=== PATIENT | male | born 1955 | race Caucasian/White ===

== ENCOUNTER → 2019-09-26 | Outpatient (CLI) | payer MEDICARE ==
[~2019-09-26] MED LIST: ASPIRIN 81M81 MG/TA2 PO; BD POSIFLUSH SF10 ML IV; CEPHALEXIN500 M1 PO; COUMADIN 5MG5 MG/TAB PO; FREESTYLE PREC1 EAC5 MC; GLUCOPHAGE500 MG/TAB PO; GLUCOSE TEST ST1 DEV MC; K-TAB10 PO; LANCETS MC; LASIX 20MG TABL20 MG PO; LOPRESSOR 225 MG/TAB PO; NORCO 325 MG-51 TAB PO; ZESTORETIC 12.51 TAB PO
[2019-09-26 16:44] LABS: INR 1.8 (0.8-3.0); PROTHROMBIN TIME 21.2 SECONDS (9.7-12.8)
== END ==
LOC: COL.LAB 15:21
PROVIDERS: Family Medicine
DX: L03.115 Cellulitis of right lower limb (principal); Z79.01 Long term (current) use of anticoagulants

== ENCOUNTER → 2019-09-30 | Outpatient (CLI) | payer MEDICARE | LOC: ZCOL.LAB 13:30 | DX: L03.90 Cellulitis, unspecified (principal); A49.01 Methicillin susceptible Staphylococcus aureus infection, unspecified site ==

== ENCOUNTER → 2019-10-29 | Outpatient (CLI) | payer MEDICARE ==
[2019-10-29 17:13] LABS: INR 2.1 (0.8-3.0); PROTHROMBIN TIME 24.7 SECONDS (9.7-12.8)
== END ==
LOC: ZCOL.LAB 16:40
PROVIDERS: Family Medicine
DX: L03.115 Cellulitis of right lower limb (principal); Z79.01 Long term (current) use of anticoagulants

== ENCOUNTER 2020-01-07 09:33 | Outpatient (RCR) | payer MEDICARE | END 2020-04-06 | disposition home or self-care (01) | LOC: WSPT | DX: I87.2 Venous insufficiency (chronic) (peripheral) (principal); I89.0 Lymphedema, not elsewhere classified; E66.01 Morbid (severe) obesity due to excess calories ==

== ENCOUNTER 2021-03-22 15:55 | Inpatient (IN) | payer MEDICARE ==
[~2021-03-22] VITALS: Ht 177.8 cm; Wt 227.3 kg
[~2021-03-22 15:55] MED LIST changes: +COUMADIN 2MG2 MG/TAB; +DOXYCYCLINE 10100 MG PO; +OMNICEF 300MG300 MG PO; +OXYGEN; +PRINIVIL5 MG PO; +[UNRECOGNIZED DRUG - REMARK] PO
[2021-03-22 17:07] LABS: BASO % 0.4 % (0.0-2.0); EOS # 0.2 (0.0-0.7); EOS % 1.9 % (0-4.0); GRAN # 7.4 (1.4-6.5); GRAN % 73.1 % (42.2-75.2); LYMPH # 1.4 (1.2-3.4); LYMPH % 13.4 % (20.0-51.0); MEAN CELL VOLUME 86 fl (80.0-100.0); MEAN CORPUSCULAR HGB CONC 32 g/dl (33.0-37.0); MEAN PLATELET VOLUME 8.9 fl (7.4-10.4); MONO # 1.1 (0.1-0.6); MONO % 10.7 % (1.7-9.3); PLATELET COUNT 405 K/mm3 (130-400); RED BLOOD COUNT 3.66 M/mm3 (4.20-5.60); REDCELL DISTRIBUTION WIDTH-CV 15.9 % (11.5-14.5)
[2021-03-22 17:08] LABS: HEMATOCRIT 31.3 % (42.0-52.0); HEMOGLOBIN 9.9 g/dl (13.5-18.0); MEAN CORPUSCULAR HEMOGLOBIN 27 pg (27.0-31.0)
[2021-03-22 17:36] LABS: INR 1.9 (0.8-3.0); PROTHROMBIN TIME 21.7 SECONDS (9.7-12.8)
[2021-03-22 17:42] LABS: ALANINE AMINOTRANSFERASE 14 U/L (4-49); ALBUMIN 3.1 gm/dL (3.5-5.0); ALKALINE PHOSPHATASE 70 U/L (50-136); ANION GAP 7 mmol/L (7-16); AST,SGOT 21 U/L (15-37); BILIRUBIN,TOTAL 0.4 mg/dL (0.0-1.0); BLOOD UREA NITROGEN 11 mg/dL (9-20); C-REACTIVE PROTEIN 6.8 mg/dL (0.0-0.9); CALCIUM 8.2 mg/dL (8.4-10.2); CARBON DIOXIDE 24 mmol/L (22-30); CHLORIDE 105 mmol/L (98-107); CREATININE, serum 0.89 (0.66-1.25); GLUCOSE 117 mg/dL (74-106); POTASSIUM 3.7 mmol/L (3.4-5.0); SODIUM 135 mmol/L (137-145)
[2021-03-22 17:52] LABS: TROPONIN-I < 0.012 ng/mL (0.000-0.035)
[2021-03-22 17:55] LABS: COLLECTION METHOD CLEAN CATCH
[2021-03-22 18:31] LABS: MUCOUS Present /lpf; PH 5 (5-8); URINE APPEARANCE Cloudy; URINE BACTERIA Rare /hpf; URINE BILIRUBIN Negative (NEGATIVE); URINE BLOOD 3+ (NEGATIVE); URINE COLOR Amber; URINE GLUCOSE Negative (NEGATIVE); URINE KETONE Negative (NEGATIVE); URINE LEUKOCYTE ESTERASE Trace (NEGATIVE); URINE NITRATE Negative (NEGATIVE); URINE PROTEIN(semi-quant) 1+ (NEGATIVE); URINE RBC >50 /hpf
[2021-03-22 23:00] VITALS: BP 168/65; PULSE 75; TEMP 97.8
[2021-03-22] MEDS ORDERED: ALEVE 220MG220 MG PO (23:21)
--- NOTE | 2021-03-22 23:51 | NUR ---
PT ADMITTED TO THE UNIT. ADMISSION INTAKE AND ASSESSMENT COMPLETED. PT RESTING IN BED, ORIENTED TO ROOM. PT GIVEN A BEDBATH, MULTIPLE AREAS OF REDDENED, RAW SKIN NOTED BETWEEN SKIN FOLDS AND IN PERINEAL AREA. PT BOTTOM WAS ALSO REDDENED AND APPEARED TO HAVE SOME OPEN BLEEDING AREAS. PTS BLE ARE SWOLLEN AND HAVE BLISTERS, CRUSTING, AND RAW OPEN SORES. THE BLE ALSO HAVE A MEDIUM AMOUNT OF DRAINGE, THEY ARE OPEN TO AIR AT THIS TIME. PT ON 2L OF O2 VIA NC. PT STATES THE ONLY PAIN IS TO HIS L ANKLE WHICH IS PRETTY RAW. PT DENIES ANY NEEDS AT THIS TIME. WILL CONTINUE TO MONITOR.
--- NOTE | 2021-03-23 01:21 | NUR ---
Vancomycin Initial Dosing Pharmacy Note Ordering provider: Nuzhat Jimenez DO Indication/duration: BLE cellulitis Relevant comorbidities: DM, HTN LABS: WBC = 10.1, SCr = 0.89 Recommendation: Will draw troughs and follow levels. Loading dose: 2 grams Maintenance dose: 1.25 grams every 8 hours Trough goal: 10-15 ug/mL
[2021-03-23 06:50] VITALS: BP 126/58; PULSE 69; TEMP 97.9
--- NOTE | 2021-03-23 07:07 | NUR ---
PT COMPLAINING OF HIS BLADDDER FEELING FULL. ORTIZ CATHETER HAS OUPUT. BLADDER SCANNED WITH 46MLS. PT STATES HE HAS BEEN BEARING DOWN, THIS RN EDUCATED PT THAT URINE SHOULD AUTOMATICALLY FLOW THROUGH ORTIZ AND NOT TO BEAR DOWN. PT SAT ON EDGE OF BED FOR A FEW MINUTES AND FELT SOME RELIEF. WILL CONTINUE TO MONITOR.
--- NOTE | 2021-03-23 09:15 | NUR ---
Initial visit; Patient thanked Surg Physician Asst for looking in on him and offering prayer and God's blessings. Surg Physician Asst will follow up.
--- NOTE | 2021-03-23 09:45 | NUR ---
Shift assessment complete. Pt lying in bed, A&Ox4. Heart rhythm irregular, rate controlled. Lungs CTA. Bilateral shins and feet w/crusty red skin and weeping ulcers, open to air, 3+ edema. Pt reports some tenderness to legs but declines medication at this time. Small open ulcers to bottom, excoriated red lower abdomen. Minaya in place w/small amount of mary urine w/sediment. Pt reports continuous feeling as if he needs to urinate and discomfort due to catheter insertion. Bladder scan shows no urinary retention and catheter site w/o s/s complication. Denies further needs at this time. Continuing to monitor.
--- NOTE | 2021-03-23 10:28 | NUR ---
SW met with the patient to discuss discharge plan. The patient lives in [place] with his girlfriend, Adwoa Castillo (ph#[phone]). He reports independence with ADLs and has a cane and walker. The patient's PCP is Dr. Eduardo Clifford and he receives his medications from [facility]. He reports no difficulties obtaining his meds. The patient does not have a DPOA-HC, but he was interested in obtaining a form. He was not interested in completing one at this time. He states that he is not , does not have any children, and that his parents are . He states that he has two siblings: Alec (ph#[phone]) and Jimena Peralta. SW informed him that his siblings are his next of kin. The patient verbalized understanding. The patient plans to return home with his girlfriend upon discharge. The patient states that he had home health in the past from [facility] and would be interested in starting services back up through them. NICOLE contacted and faxed a referral to Yuliet at [facility]. Awaiting screen. PT/OT have been ordered. SW to continue to follow. *Discharge plan: home with girlfriend and home health*
[2021-03-23 12:46] VITALS: BP 129/57; PULSE 63; TEMP 98.5
--- NOTE | 2021-03-23 15:00 | NUR ---
Minaya removed per hospitalist orders and external male catheter placed.
[2021-03-23 16:20] VITALS: BP 116/54; PULSE 60; TEMP 98.3
--- NOTE | 2021-03-23 16:31 | NUR ---
Yuliet, at [facility][Note 3], reports that they are able to accept the patient for services.
[2021-03-23 19:55] VITALS: BP 136/68; PULSE 63; TEMP 97.7
--- NOTE | 2021-03-23 21:39 | NUR ---
PT RESTING IN BED AT THIS TIME. EVENING MEDICATIONS GIVEN. PT BLE HAVE BLISTERS, CRUSTING, REDNESS, AND A RAW IN SEVERAL AREAS. PT BOTTOM AND SKIN FOLDS ALSO HAVE RED/RASH APPEARANCE WITH SOME OPEN AREAS. PT REPORTS THERE HAS BEEN LESS DRAINAGE FROM HIS BLE THROUGHOUT THE DAY. PT DENIES ANY NEEDS AT THIS TIME. WILL CONTINUE TO MONITOR.
[2021-03-23 23:58] VITALS: BP 128/62; PULSE 66; TEMP 97.6
[2021-03-24 04:33] VITALS: BP 133/68; PULSE 69; TEMP 97.5
--- NOTE | 2021-03-24 05:33 | NUR ---
PT FINALLY ABLE TO GET SOME SLEEP THIS MORNING. DENIES ANY NEEDS AT THIS TIME. WILL CONTINUE TO MONITOR.
[2021-03-24 07:20] VITALS: BP 127/60; PULSE 58; TEMP 97.9
--- NOTE | 2021-03-24 09:14 | NUR ---
Patient is currently working with OT. Patient stood up at bedside with assistance of OT and this RN. Patient's external catheter came off and incontinence pads were saturated with urine. These were replaced by this RN. All morning scheduled medications administered and shift assessment completed. Patient has had no complaints this morning.
[2021-03-24 11:01] LABS: BASO % 0.4 % (0.0-2.0); EOS # 0.4 (0.0-0.7); EOS % 4.7 % (0-4.0); GRAN # 6.4 (1.4-6.5); GRAN % 71.4 % (42.2-75.2); LYMPH # 1.2 (1.2-3.4); LYMPH % 13.6 % (20.0-51.0); MEAN CELL VOLUME 87 fl (80.0-100.0); MEAN CORPUSCULAR HEMOGLOBIN 27 pg (27.0-31.0); MEAN CORPUSCULAR HGB CONC 31 g/dl (33.0-37.0); MEAN PLATELET VOLUME 8.7 fl (7.4-10.4); MONO # 0.8 (0.1-0.6); MONO % 9.3 % (1.7-9.3); PLATELET COUNT 413 K/mm3 (130-400); RED BLOOD COUNT 3.72 M/mm3 (4.20-5.60); REDCELL DISTRIBUTION WIDTH-CV 16.3 % (11.5-14.5)
[2021-03-24 11:03] LABS: HEMATOCRIT 32.5 % (42.0-52.0)
[2021-03-24 11:12] LABS: CALCIUM 8.1 mg/dL (8.4-10.2); CREATININE, serum 0.95 (0.66-1.25); POTASSIUM 3.4 mmol/L (3.4-5.0)
[2021-03-24 11:58] VITALS: BP 135/62; PULSE 120; TEMP 97.9
--- NOTE | 2021-03-24 13:54 | NUR ---
PT/OT are recommending home health vs SNF. SW met with the patient and discussed their recommendation. The patient states that he prefers to return home and feels comfortable returning home with his girlfriend and having home health services from [facility]. SW to continue to follow. *Discharge plan: home with home health*
[2021-03-24 17:49] VITALS: BP 127/64; PULSE 61; TEMP 98.1
[2021-03-24 20:25] VITALS: BP 127/64; PULSE 64; TEMP 98.3
--- NOTE | 2021-03-24 23:07 | NUR ---
PT RESTING IN BED. EVENING MEDICATIONS GIVEN. PT BLE HAVE PITTING EDEMA, CRUSTING, BLISTERING, RED, AND RAW SKIN. WAS TOLD IN REPORT THAT THEY WERE DEBRIDED DURING THE DAY, THEY DO APPEAR MUCH BETTER. PT ALSO HAS REDNESS TO SKIN FOLDS AND BOTTOM WITH SOME SKIN BREAKDOWN. PT DENIES ANY NEEDS AT THIS TIME. WILL CONTINUE TO MONITOR.
[2021-03-25] VITALS (7 sets, daily range): BP systolic 114–142; BP diastolic 47–67; PULSE 51–70; TEMP 97.5–97.9
--- NOTE | 2021-03-25 04:07 | NUR ---
PT L FOREARM IV INFILTRATED WITH VANCOMYCIN RUNNING. AREA IS RED AND WARM TO THE TOUCH. NEW IV PLACED TO L FOREARM. WILL CONTINUE TO MONITOR.
[2021-03-25 07:49] LABS: INR 3.1 (0.8-3.0)
[2021-03-25 07:53] LABS: BASO % 0.5 % (0.0-2.0); EOS # 0.3 (0.0-0.7); EOS % 4.3 % (0-4.0); GRAN # 5.4 (1.4-6.5); GRAN % 68.1 % (42.2-75.2); LYMPH # 1.3 (1.2-3.4); LYMPH % 16.7 % (20.0-51.0); MEAN CELL VOLUME 87 fl (80.0-100.0); MEAN CORPUSCULAR HGB CONC 31 g/dl (33.0-37.0); MEAN PLATELET VOLUME 8.8 fl (7.4-10.4); MONO # 0.8 (0.1-0.6); MONO % 9.8 % (1.7-9.3); PLATELET COUNT 394 K/mm3 (130-400)
[2021-03-25 07:55] LABS: HEMOGLOBIN 9.4 g/dl (13.5-18.0); MEAN CORPUSCULAR HEMOGLOBIN 27 pg (27.0-31.0)
[2021-03-25 07:56] LABS: HEMATOCRIT 30.6 % (42.0-52.0)
[2021-03-25 07:58] LABS: CALCIUM 7.8 mg/dL (8.4-10.2); CREATININE, serum 1.01 (0.66-1.25); POTASSIUM 3.4 mmol/L (3.4-5.0)
--- NOTE | 2021-03-25 08:23 | NUR ---
Patient laying in bed upon entering the room. IV pump was beeping, zosyn was completed. This RN stopped the pump. Assessment completed.
--- NOTE | 2021-03-25 14:23 | NUR ---
Primary nurse was assisted with [phone] patient care by [employer] student Rachel Aden and [facility] instructor Anne-Marie Shanks MSN, RN
--- NOTE | 2021-03-25 15:10 | NUR ---
PT notified NICOLE that the patient informed her that he is now interested in SNF. SW met with the patient to follow up. The patient states that after working with PT again, he realized he would benefit from SNF. SW informed him of the different post-acute rehabs. He preferred [facility] and was open for SW to send referrals. SW consulted [facility] Director, Pam. NICOLE contacted and faxed a referral to [facility], [facility], [facility], and [facility]. NICOLE staffed with the patient's PA. The patient may be able to d/c tomorrow or Sunday. The patient has Medicare [employer] and his insurance requires auth. NICOLE faxed the patient's information to [facility] for insurance auth. Dhiraj, at [facility], reports that they are unable to accept the patient; due to being bariatric. Pam, [facility] Director, reports that she will not have a bed available over the weekend. Awaiting other screens and insurance approval.
--- NOTE | 2021-03-25 17:42 | NUR ---
Patient has had no complaints today. Has remained in bed but did work with PT/OT. External catheter is still in place and draining well.
--- NOTE | 2021-03-25 22:50 | NUR ---
PT RESTING IN BED. EVENING MEDICATIONS GIVEN. PT BLE APPEAR MUCH MORE DRY AND HAVE MINIMAL DRAINAGE COMPARED TO ADMISSION. PT DENIES ANY NEEDS AT THIS TIME. WILL CONTINUE TO MONITOR.
[2021-03-26 03:29] VITALS: BP 121/61; PULSE 62; TEMP 98.2
[2021-03-26 07:23] LABS: INR 3.7 (0.8-3.0); PROTHROMBIN TIME 41.2 SECONDS (9.7-12.8)
[2021-03-26 07:35] LABS: CREATININE, serum 0.96 (0.66-1.25); POTASSIUM 3.5 mmol/L (3.4-5.0)
[2021-03-26 07:43] LABS: BASO # 0.1 (0.0-0.2); BASO % 0.6 % (0.0-2.0); EOS # 0.2 (0.0-0.7); EOS % 2.4 % (0-4.0); GRAN # 6.2 (1.4-6.5); LYMPH # 1.1 (1.2-3.4); LYMPH % 13.2 % (20.0-51.0); MEAN CELL VOLUME 86 fl (80.0-100.0); MEAN CORPUSCULAR HGB CONC 31 g/dl (33.0-37.0); MEAN PLATELET VOLUME 8.8 fl (7.4-10.4); MONO # 0.9 (0.1-0.6); MONO % 10.2 % (1.7-9.3); PLATELET COUNT 410 K/mm3 (130-400); RED BLOOD COUNT 3.59 M/mm3 (4.20-5.60); REDCELL DISTRIBUTION WIDTH-CV 15.9 % (11.5-14.5)
[2021-03-26 07:46] LABS: HEMATOCRIT 30.7 % (42.0-52.0); HEMOGLOBIN 9.6 g/dl (13.5-18.0); MEAN CORPUSCULAR HEMOGLOBIN 27 pg (27.0-31.0)
[2021-03-26 08:43] VITALS: BP 148/65; PULSE 53; TEMP 98.1
--- NOTE | 2021-03-26 08:50 | NUR ---
Shift assessment complete. Pt resting in bed, A&Ox4. Remains in Afib, rate 50-60s per telemetry. Lungs CTA. 3+ edema, red scaly hardened skin and weeping ulcers to BLE. Denies needs at this time. Continuing to monitor.
[2021-03-26 11:53] VITALS: BP 147/59; PULSE 52; TEMP 98.1
[2021-03-26 16:48] VITALS: BP 136/66; PULSE 59; TEMP 98.2
--- NOTE | 2021-03-26 18:00 | NUR ---
Pt refused getting up to recliner today. Did agree to sit on side of bed to eat dinnner. Remained up for 30 minutes before lying back down.
[2021-03-26 19:22] VITALS: BP 148/66; PULSE 62; TEMP 98.7
--- NOTE | 2021-03-26 21:50 | NUR ---
SCHEDULED MEDICATIONS GIVEN. SHIFT ASSESSMENT PREFORMED. BLE CELLULITIS NOTED. VSS. PATIENT DENIES ANY PAIN, DISCOMFORT, SOA, OR FURTHER NEEDS AT THIS TIME. CALL LIGHT REACH. EXTERNAL CATHETER IN PLACE. SECURMENT DEVICE IN USE.
[2021-03-26 23:16] VITALS: BP 123/50; PULSE 57; TEMP 98.5
[2021-03-27 03:16] VITALS: BP 128/51; PULSE 66; TEMP 98.7
--- NOTE | 2021-03-27 05:20 | NUR ---
PATIENT HAS HAD AN OK NIGHT. VSS. NO SIGNS OF PAIN, DISCOMFORT, SOA, OR FURTHER NEEDS AT THIS TIME. CURRENTLY REQUIRING 1L OF O2 VIA NASAL CANNULA.
[2021-03-27 07:44] VITALS: BP 125/56; PULSE 62; TEMP 97.8
--- NOTE | 2021-03-27 07:45 | NUR ---
Shift assessment complete. Pt lying flat in bed, encouraged to get up to chair today for breakfast, states he will with PT. A&Ox4. Heart rhythm irregular, rate bradycardic in the 50s. Lungs CTA. BLE w/3+ edema, red flaky skin, and weeping leg ulcers. Denies needs this morning. Continuing to monitor.
--- NOTE | 2021-03-27 09:00 | NUR ---
Pt up to recliner w/PT. Sittin in recliner eating breakfast at this time.
[2021-03-27 11:21] VITALS: BP 141/51; PULSE 61; TEMP 98.3
[2021-03-27 14:01] LABS: INR 3.1 (0.8-3.0); PROTHROMBIN TIME 34.9 SECONDS (9.7-12.8)
[2021-03-27 16:00] VITALS: BP 131/61; PULSE 54; TEMP 98.2
[2021-03-27 20:17] VITALS: BP 127/48; PULSE 63; TEMP 98.4
--- NOTE | 2021-03-27 21:23 | NUR ---
Patient assessed around 2019. Alert and oriented x 4, and able to make needs known. Denies having pain and discomfort at this time. Peripheral INTs to left forearm and right AC. Denies SOB and dyspnea. LS CTA in upper lobes, diminished in lower. Respirations even and unlabored. HRI. Telemetry in place: A-fib, rate controlled. Capillary refill less than 3 seconds. Non-tenting skin turgor. BSAx4. Abdomen soft and non-tender. External catheter in place, with mary urine with sediment present. 3+ edema BLE, with redness/scaling/flaking. Weeping ulcers to BLE. Patient voices no questions, needs, or concerns at this time. Resting in bed with call light within reach.
[2021-03-27 23:17] VITALS: BP 96/69; PULSE 64; TEMP 98
[2021-03-28 05:00] VITALS: BP 130/54; PULSE 61; TEMP 97.6
--- NOTE | 2021-03-28 05:55 | NUR ---
Patient has been resting in bed with call light within reach. Has voiced no questions, needs, or concern this shift.
[2021-03-28 07:07] LABS: INR 2.7 (0.8-3.0); PROTHROMBIN TIME 30.2 SECONDS (9.7-12.8)
[2021-03-28 08:13] VITALS: BP 133/52; PULSE 63; TEMP 98
--- NOTE | 2021-03-28 09:41 | NUR ---
The patient's insurance appoved the patient for SNF from days 03/25-03/29. NICOLE contacted [facility] and [facility] to follow up on referral. Both facilities are still looking over the referral. NICOLE met with the patient to update. The patient reports that he really does not want to go too far from [place] and would rather return home with with his girlfriend and home health. He states he will think about it, but home health it was he is leaning towards now. NICOLE to update the clinical team.
--- NOTE | 2021-03-28 10:04 | NUR ---
NICOLE attended clinical rounds. The hospitalist discussed his recommendation for SNF and how we are waiting to hear back from the other facilities. The patient verbalized understanding. NICOLE contacted and gave a referral to Misha at [facility].
[2021-03-28] MEDS ORDERED: CIPRO 500MG TA500 MG PO (10:10)
[2021-03-28] MEDS ORDERED: COUMADIN4 MG PO (10:11)
[2021-03-28] MEDS ORDERED: DOXYCYCLINE 10100 MG PO (10:13)
--- NOTE | 2021-03-28 10:49 | NUR ---
Patient sitting in recliner upon entering the room. C/o generalized pain, patient given PRN tylenol.
--- NOTE | 2021-03-28 11:29 | NUR ---
The hospitalist notified NICOLE that after further discussion with the patient, the patient has decided to pursue going home with home health through [facility]. NICOLE met with the patient and confirmed the plan. NICOLE presented and read the IM form outloud to the patient. The patient verbalized understanding and gave NICOLE approval to sign the form on his behalf. NICOLE provided him with a copy. Danae, at [facility], reports that they declined the patient. The patient is to discharge back home with his fiance today, 03/28, with home health services for group home/PT/OT/wound care from [facility]. NICOLE notified and faxed d/c orders to [facility]. No additional needs at this time.
[2021-03-28 12:21] VITALS: BP 114/51; PULSE 54; TEMP 97.9
--- NOTE | 2021-03-28 15:26 | NUR ---
Patient discharged. This RN and Catina RN, dressed the patient and got him down and into his vehicle.
== END 2021-03-28 15:15 | disposition home health service (06) | DRG 603 ==
LOC: COL.ER 15:55 → MEDICAL 18:46
PROVIDERS: Emergency Medicine; Physician Assistant; ADMIT Internal Medicine
DX: L03.116 Cellulitis of left lower limb (principal); I48.92 Unspecified atrial flutter; R65.10 Systemic inflammatory response syndrome (SIRS) of non-infectious origin without acute organ dysfunction; Z68.45 Body mass index [BMI] 70 or greater, adult; N39.0 Urinary tract infection, site not specified; L97.919 Non-pressure chronic ulcer of unspecified part of right lower leg with unspecified severity; L03.115 Cellulitis of right lower limb; I50.9 Heart failure, unspecified; Z20.822 Contact with and (suspected) exposure to COVID-19; I25.10 Atherosclerotic heart disease of native coronary artery without angina pectoris; I11.0 Hypertensive heart disease with heart failure; E11.9 Type 2 diabetes mellitus without complications; I87.2 Venous insufficiency (chronic) (peripheral); D64.9 Anemia, unspecified; E66.01 Morbid (severe) obesity due to excess calories; R53.81 Other malaise; Z79.891 Long term (current) use of opiate analgesic; I48.91 Unspecified atrial fibrillation; Z79.52 Long term (current) use of systemic steroids; Z79.01 Long term (current) use of anticoagulants; Z90.49 Acquired absence of other specified parts of digestive tract; Z88.6 Allergy status to analgesic agent; Z88.0 Allergy status to penicillin; Z88.2 Allergy status to sulfonamides; Z88.5 Allergy status to narcotic agent; Z91.81 History of falling
CPT/HCPCS: 99223-AI; 99232-AI; 99233-AI; 99239; A4314; J0696; J2543; J3370; J7030; J7040; J7050

== ENCOUNTER 2021-05-06 15:46 | Emergency (ER) | payer MEDICARE ==
[~2021-05-06] VITALS: Ht 177.8 cm; Wt 222.7 kg
[~2021-05-06 15:46] MED LIST changes: +ALEVE 220MG220 MG PO; +CIPRO 500MG TA500 MG PO; +COUMADIN4 MG PO
[2021-05-06 15:49] VITALS: TEMP 97.7
[2021-05-06 16:47] LABS: BASO % 0.4 % (0.0-2.0); EOS # 0.3 K/mm3 (0.0-0.7); EOS % 2.9 % (0-4.0); GRAN # 7.2 K/mm3 (1.4-6.5); GRAN % 77.2 % (42.2-75.2); HEMOGLOBIN 10.2 g/dl (13.5-18.0); LYMPH % 10.6 % (20.0-51.0); MEAN CELL VOLUME 87 fl (80.0-100.0); MEAN CORPUSCULAR HEMOGLOBIN 27 pg (27.0-31.0); MEAN CORPUSCULAR HGB CONC 32 g/dl (33.0-37.0); MEAN PLATELET VOLUME 9.1 fl (7.4-10.4); MONO # 0.8 K/mm3 (0.1-0.6); MONO % 8.4 % (1.7-9.3); PLATELET COUNT 363 K/mm3 (130-400); RED BLOOD COUNT 3.72 M/mm3 (4.20-5.60); REDCELL DISTRIBUTION WIDTH-CV 15.9 % (11.5-14.5)
[2021-05-06 16:48] LABS: HEMATOCRIT 32.2 % (42.0-52.0)
[2021-05-06 17:01] LABS: ALBUMIN 2.2 gm/dL (3.4-4.8); ALKALINE PHOSPHATASE 57 U/L (40-150); ANION GAP 11 mmol/L (7-16); AST,SGOT 12 U/L (5-34); BILIRUBIN,TOTAL 0.9 mg/dL (0.2-1.2); BLOOD UREA NITROGEN 10 mg/dL (8-26); C-REACTIVE PROTEIN 11.35 mg/dL (0.00-0.50); CALCIUM 8.2 mg/dL (8.4-10.2); CARBON DIOXIDE 22 mmol/L (23-31); CHLORIDE 104 mmol/L (98-107); CREATININE, serum 0.91 mg/dL (0.72-1.25); GLUCOSE 132 mg/dL (70-99); POTASSIUM 3.4 mmol/L (3.5-4.5); SODIUM 137 mmol/L (136-145); TOTAL PROTEIN 6.8 gm/dL (6.2-8.1)
[2021-05-06 17:02] LABS: ALANINE AMINOTRANSFERASE < 6 U/L (0-55)
[2021-05-06 18:15] LABS: COLLECTION METHOD CLEAN CATCH
[2021-05-06 18:25] LABS: MUCOUS Present /lpf; PH 5 (5-8); SQUAMOUS EPITHELIAL 0-2 /hpf; URINE APPEARANCE Clear; URINE BACTERIA None Seen /hpf; URINE BILIRUBIN Negative (NEGATIVE); URINE BLOOD Negative (NEGATIVE); URINE COLOR Yellow; URINE GLUCOSE Negative (NEGATIVE); URINE KETONE Negative (NEGATIVE); URINE LEUKOCYTE ESTERASE Negative (NEGATIVE); URINE NITRATE Negative (NEGATIVE); URINE PROTEIN(semi-quant) Negative (NEGATIVE); URINE RBC 0-2 /hpf; URINE UROBILINOGEN Negative (NEGATIVE)
[2021-05-06] MEDS ORDERED: NYSTATIN POWDER30 GM TOP (18:53)
[2021-05-06 19:29] VITALS: BP 131/77; PULSE 78
== END 2021-05-06 19:06 | disposition home or self-care (01) ==
LOC: COL.ER 15:46
PROVIDERS: Physician Assistant
DX: B37.2 Candidiasis of skin and nail (principal); I87.2 Venous insufficiency (chronic) (peripheral); I48.91 Unspecified atrial fibrillation; E11.9 Type 2 diabetes mellitus without complications; I10 Essential (primary) hypertension; E66.01 Morbid (severe) obesity due to excess calories; Z79.01 Long term (current) use of anticoagulants; Z79.899 Other long term (current) drug therapy; Z79.84 Long term (current) use of oral hypoglycemic drugs; Z79.82 Long term (current) use of aspirin; Z68.45 Body mass index [BMI] 70 or greater, adult
CPT/HCPCS: J7030

== ENCOUNTER → 2021-09-02 | Outpatient (CLI) | payer MEDICARE ==
[~2021-09-02] MED LIST changes: +NYSTATIN POWDER30 GM TOP
[2021-09-02 14:11] LABS: ALBUMIN 3.4 gm/dL (3.4-4.8); BILIRUBIN,TOTAL 0.6 mg/dL (0.2-1.2); CALCIUM 8.5 mg/dL (8.4-10.2); CREATININE, serum 1.04 mg/dL (0.72-1.25); POTASSIUM 4.3 mmol/L (3.5-4.5); TOTAL PROTEIN 7.4 gm/dL (6.2-8.1)
[2021-09-02 14:12] LABS: BASO % 0.5 % (0.0-2.0); EOS # 0.3 K/mm3 (0.0-0.7); EOS % 3.4 % (0.0-4.0); GRAN # 4.5 K/mm3 (1.4-6.5); GRAN % 62.1 % (42.2-75.2); HEMATOCRIT 38.1 % (42.0-52.0); HEMOGLOBIN 11.7 g/dl (13.5-18.0); LYMPH # 1.7 K/mm3 (1.2-3.4); LYMPH % 23.5 % (20.0-51.0); MEAN CELL VOLUME 87 fl (80.0-100.0); MEAN CORPUSCULAR HEMOGLOBIN 27 pg (27-31); MEAN CORPUSCULAR HGB CONC 31 g/dl (33.0-37.0); MEAN PLATELET VOLUME 9.4 fl (7.4-10.4); MONO # 0.8 K/mm3 (0.1-0.6); MONO % 10.2 % (1.7-9.3); PLATELET COUNT 383 K/mm3 (130-400); RED BLOOD COUNT 4.36 M/mm3 (4.20-5.60); REDCELL DISTRIBUTION WIDTH-CV 15.7 % (11.5-14.5)
[2021-09-02 14:27] LABS: CHOLESTEROL RISK RATIO 3.1
== END ==
LOC: ZCOL.LAB 13:29
DX: I48.91 Unspecified atrial fibrillation (principal); E66.01 Morbid (severe) obesity due to excess calories; E11.51 Type 2 diabetes mellitus with diabetic peripheral angiopathy without gangrene; B60 Other protozoal diseases, not elsewhere classified